=== PATIENT | male | born 1985 | race Caucasian/White ===

== ENCOUNTER 2021-03-18 06:23 | Emergency (ER) | payer MEDICAID ==
[~2021-03-18] VITALS: Ht 180.3 cm; Wt 88.5 kg
[2021-03-18 06:43] VITALS: BP 121/82
--- NOTE | 2021-03-18 06:43 | NUR ---
TO BED AMBULATORY
--- NOTE | 2021-03-18 06:59 | NUR ---
35 Y/O MALE PATIENT PRESENTS TO ED WITH ABDOMINAL PAIN . PT STATES "I WOKE UP FEELING VERY NAUSEOUS AND HAVE THE URGE TO THROW UP." SKIN IS PINK/WARM/DRY; AAOX4 WITH EVEN AND STEADY GAIT; LUNGS CLEAR BL; HR EVEN AND REGULAR; PT DENIES ANY FEVER, CP, SOB, OR COUGH AT THIS TIME; PATIENT STATES SHARP PAIN OF 9/10 AT THIS TIME; VSS; PATIENT POSITIONED FOR COMFORT; HOB ELEVATED; BEDRAILS UP X2; BED DOWN. ER MD MADE AWARE OF PT STATUS. PMH: DENIES NKA
--- NOTE | 2021-03-18 07:02 | NUR ---
ERMD AT BEDSIDE EXAMINING PT
[2021-03-18] MEDS ORDERED: NACL 0.9% 1,000 ML IV ONE (07:10)
--- NOTE | 2021-03-18 07:17 | NUR ---
GIVEN REPORT TO MICHELE CONTRERAS. TRANSFER OF CARE AT THIS TIME
--- NOTE | 2021-03-18 07:18 | NUR ---
Receved report from MICHELE Camejo. Transfer of care at this time.
--- NOTE | 2021-03-18 07:22 | NUR ---
Establihshed IV to left AC 20G, good blood return. Collected blood gave to Khalif at pt bedside.
[2021-03-18 07:29] LABS: BASOPHILS % (AUTO) 0.7 % (0.0-2.0); EOSINOPHILS # (AUTO) 0.3 K/uL (0-0.4); EOSINOPHILS % (AUTO) 5.7 % (0.0-4.0); HEMATOCRIT 49.5 % (36-52); HEMOGLOBIN 16.9 g/dL (12.0-18.0); LYMPHOCYTES # (AUTO) 1.1 K/uL (2.0-11.5); LYMPHOCYTES % (AUTO) 19.5 % (20.5-51.1); MEAN CORPUSCULAR HEMOGLOBIN 30 pg (27-31); MEAN CORPUSCULAR HGB CONC 34 g/dL (33-37); MEAN CORPUSCULAR VOLUME 88.2 fL (80-94); MONOCYTES # (AUTO) 0.4 K/uL (0.8-1.0); MONOCYTES % (AUTO) 7.3 % (1.7-9.3); NEUTROPHILS # (AUTO) 3.9 K/uL (1.8-7.7); NEUTROPHILS % (AUTO) 66.8 % (42.2-75.2); PLATELET COUNT (AUTO) 314 K/uL (140-450); RED BLOOD CELL COUNT(AUTO) 5.61 MIL/uL (4.20-6.10); RED CELL DISTRIBUTION WIDTH 13.7 % (11.6-13.7); WHITE BLOOD COUNT (AUTO) 5.8 K/uL (4.8-10.8)
[2021-03-18] MEDS ORDERED: ONDANSETRON 4 MG/2 ML VIAL ONE (07:29)
[2021-03-18] MEDS ORDERED: MORPHINE SULFATE 4 MG/ML SYR ONE (07:30)
[2021-03-18] MEDS ORDERED: ONDANSETRON 4 MG/2 ML VIAL IVP ONE (07:30)
[2021-03-18] MEDS ORDERED: MORPHINE SULFATE 4 MG/ML SYR IVP ONE (07:30)
[2021-03-18 07:42] LABS: ALBUMIN 4.1 g/dL (3.4-5.0); ANION GAP 9.6 (8-16); CARBON DIOXIDE 29.9 mmol/L (21-32); CREATININE 1.2 mg/dL (0.6-1.3); POTASSIUM 4.5 mmol/L (3.5-5.1)
--- NOTE | 2021-03-18 07:51 | NUR ---
Dr. Bal at pt bedside for re-evaluation.
[2021-03-18] MEDS ORDERED: ONDA4TAB PO (08:12)
[2021-03-18] MEDS ORDERED: IMO2 PO (08:12)
[2021-03-18] MEDS ORDERED: AZITHROMYCIN 250 MG TAB PO ONE (08:15)
[2021-03-18] MEDS ORDERED: CIPR250T6 PO (08:15)
[2021-03-18 08:28] VITALS: BP 121/82
--- NOTE | 2021-03-18 08:29 | NUR ---
Patient discharged with v/s stable. Written and verbal after care instructions given viral gastroenteritis and explained. Patient alert, oriented and verbalized understanding of instructions. Ambulatory with steady gait. All questions addressed prior to discharge. ID band removed. Patient advised to follow up with PMD. Rx of cipro 250mg po bid for 3days, zofran 4mg po q6h prn, and loperamide 2mg po q6h for 5days given. Patient educated on indication of medication including possible reaction and side effects. Opportunity to ask questions provided and answered.
== END 2021-03-18 08:29 | disposition home or self-care (01) ==
LOC: MED 06:23
DX: K52.9 Noninfective gastroenteritis and colitis, unspecified (principal); Z79.899 Other long term (current) drug therapy
CPT/HCPCS: 36415; 80053; 82150; 83690; 85025; 96361; 96374; 96375; 99284; J2270; J2405; J7030

== ENCOUNTER 2021-03-20 16:33 | Emergency (ER) | payer MEDICAID ==
[~2021-03-20] VITALS: Ht 180.3 cm; Wt 87.5 kg
[~2021-03-20 16:33] MED LIST: CIPR250T6 PO; IMO2 PO; ONDA4TAB PO
[2021-03-20 16:35] VITALS: BP 151/55
--- NOTE | 2021-03-20 16:41 | NUR ---
PT ASKED TO WAIT IN LOBBY.
[2021-03-20] MEDS ORDERED: SODIUM CHLORIDE FLUSH 10 ML SYR IVF STA (17:03)
--- NOTE | 2021-03-20 17:06 | NUR ---
PT GIVEN SPECIMEN CUP FOR URINE COLLECTION
[2021-03-20 17:19] LABS: BASOPHILS # (AUTO) 0.1 K/uL (0.00-0.22); BASOPHILS % (AUTO) 0.6 % (0.0-2.0); EOSINOPHILS # (AUTO) 0.1 K/uL (0-0.4); EOSINOPHILS % (AUTO) 1.1 % (0.0-4.0); HEMATOCRIT 50.2 % (36-52); LYMPHOCYTES # (AUTO) 1.7 K/uL (2.0-11.5); MEAN CORPUSCULAR HEMOGLOBIN 30 pg (27-31); MEAN CORPUSCULAR HGB CONC 34 g/dL (33-37); MEAN CORPUSCULAR VOLUME 87.7 fL (80-94); MONOCYTES # (AUTO) 0.7 K/uL (0.8-1.0); MONOCYTES % (AUTO) 7.5 % (1.7-9.3); NEUTROPHILS # (AUTO) 7.2 K/uL (1.8-7.7); NEUTROPHILS % (AUTO) 73.8 % (42.2-75.2); PLATELET COUNT (AUTO) 326 K/uL (140-450); RED BLOOD CELL COUNT(AUTO) 5.72 MIL/uL (4.20-6.10); RED CELL DISTRIBUTION WIDTH 13.6 % (11.6-13.7); WHITE BLOOD COUNT (AUTO) 9.7 K/uL (4.8-10.8)
[2021-03-20 17:20] LABS: APPEARANCE,URINE CLEAR (CLEAR); BILIRUBIN,URINE NEGATIVE (NEGATIVE); BLOOD, URINE TRACE-I (NEGATIVE); COLOR,URINE YELLOW (YELLOW); LEUKOCYTE ESTERASE ,URINE NEGATIVE (NEGATIVE); NITRITE, URINE NEGATIVE (NEGATIVE); UGLUCOSE NEGATIVE (NEGATIVE)
--- NOTE | 2021-03-20 17:30 | NUR ---
35 y/o M BIB self from home with c/c abdominal pain. Patient A&Ox4, states abdominal pain to epigastric region x 2 hours; reports 10/10, sharp/intermittent, non-radiating pain that worsens with meals. Patient states seen here 2 days ago and discharegd with Cipro that he has completed today. Last BM: today. Bowel sounds normoactive x 4 quadrants. Patient denies dysuria, fever/chills, urinary symptoms, chest pain, back pain, dizziness. States nausea yesterday, taken prescribed Zofran with relief. PMH/Sx/Meds: Denies NKA
[2021-03-20 17:32] LABS: ALBUMIN 4.3 g/dL (3.4-5.0); ANION GAP 8.8 (8-16); CARBON DIOXIDE 33.2 mmol/L (21-32); CREATININE 1.2 mg/dL (0.6-1.3)
--- NOTE | 2021-03-20 17:35 | NUR ---
Lab at bedside.
[2021-03-20 17:41] LABS: RBC,URINE 0-5 /HPF (0-5)
[2021-03-20 17:42] LABS: WBC,URINE NONE SEEN /HPF (0-5)
--- NOTE | 2021-03-20 18:19 | NUR ---
Dr. Hickman is evaluating patient at bedside.
--- NOTE | 2021-03-20 19:10 | NUR ---
Received report from Vincent BAUTISTA for continuity of care.
--- NOTE | 2021-03-20 19:15 | NUR ---
Patient refused medication and IV insertion. made aware.
--- NOTE | 2021-03-20 19:18 | NUR ---
IV removed, catheter intact and site benign. Applied folded 4x4 gauze and tape to stop bleeding.
[2021-03-20] MEDS ORDERED: KETOROLAC 30 MG/ML VIAL IVP ONE (19:20)
[2021-03-20] MEDS ORDERED: NACL 0.9% 1,000 ML IV ONE ×2 (19:20→20:25)
--- NOTE | 2021-03-20 19:22 | NUR ---
ORLANDO Hickman at bedside speaking with patient per patient request
[2021-03-20] MEDS ORDERED: KETOROLAC 30 MG/ML VIAL IM ONE ×2 (19:30→19:55)
--- NOTE | 2021-03-20 19:38 | NUR ---
patient to xray via wheelchair
--- NOTE | 2021-03-20 19:49 | NUR ---
PT RETURN FROM XRAY
[2021-03-20] MEDS ORDERED: KETOROLAC 30 MG/ML VIAL ONE (19:51)
--- NOTE | 2021-03-20 20:00 | NUR ---
patient refused medication. ERMD made aware.
--- NOTE | 2021-03-20 20:22 | NUR ---
ERMD at bedside for explanation of CT with contrast. ERMD answered all questions and patient understands.
[2021-03-20] MEDS ORDERED: MORPHINE SULFATE 4 MG/ML SYR IVP ONE (20:25)
--- NOTE | 2021-03-20 20:25 | NUR ---
patient ambulated to the bathroom
--- NOTE | 2021-03-20 20:31 | NUR ---
patient refused CT with contrast. patient refused IV insertion. patient refused pain medications. MD notified and aware.
--- NOTE | 2021-03-20 21:43 | NUR ---
PT RETURN FROM CT
[2021-03-20] MEDS ORDERED: MAGN1.7529 PO (23:08)
[2021-03-20] MEDS ORDERED: DICY10CA14 PO (23:08)
[2021-03-20 23:23] VITALS: BP 130/69
--- NOTE | 2021-03-20 23:23 | NUR ---
Patient discharged with v/s stable. Written and verbal after care instructions given and explained. Patient verbalized understanding. Ambulatory with steady gait. All questions addressed prior to discharge. Advised to follow up with PMD.
== END 2021-03-20 23:23 | disposition home or self-care (01) ==
LOC: MED 16:33
DX: R10.13 Epigastric pain (principal); K59.00 Constipation, unspecified; F17.210 Nicotine dependence, cigarettes, uncomplicated
CPT/HCPCS: 36415; 74022; 74176; 80053; 81001; 83690; 85025; 96372; 99285; J1885; 96361

== ENCOUNTER 2021-09-04 11:36 | Emergency (ER) | payer MEDICAID ==
[~2021-09-04] VITALS: Ht 180.3 cm; Wt 84.9 kg
[~2021-09-04 11:36] MED LIST changes: +DICY10CA14 PO; +MAGN1.7529 PO
[2021-09-04 11:42] VITALS: BP 119/68
[2021-09-04] MEDS: FLUORESCEIN OPTH STRIP 1 MG OP ONE (13:33)
[2021-09-04] MEDS ORDERED: CETI10SG1 PO (13:43)
[2021-09-04 14:06] VITALS: BP 119/68
== END 2021-09-04 14:06 | disposition home or self-care (01) ==
LOC: MED 11:36
DX: H57.12 Ocular pain, left eye (principal); H57.89 Other specified disorders of eye and adnexa
CPT/HCPCS: 99283